=== PATIENT | male | born 1995 | race Caucasian/White ===

== ENCOUNTER 2017-03-19 14:42 | Emergency (ER) | payer OTHER ==
[~2017-03-19] VITALS: Ht 188 cm; Wt 106.6 kg
[2017-03-19 14:45] VITALS: BP 135/67
[2017-03-19] MEDS ORDERED: TETANUS-DIPTH-ACEL PERTUSSIS 0.5ML SYRG IM ONE (16:45)
== END 2017-03-19 17:35 | disposition home or self-care (01) ==
LOC: ER 14:45
DX: S01.112A Laceration without foreign body of left eyelid and periocular area, initial encounter (principal); R56.9 Unspecified convulsions; F10.10 Alcohol abuse, uncomplicated; Z23 Encounter for immunization; X58.XXXA Exposure to other specified factors, initial encounter; Y93.89 Activity, other specified; Y99.8 Other external cause status; Y92.89 Other specified places as the place of occurrence of the external cause
CPT/HCPCS: 12013; 70450; 90471; 90715